=== PATIENT | female | born 1955 | race Caucasian/White ===

== ENCOUNTER 2017-08-11 15:16 | Inpatient (IN) | payer MEDICAID ==
[~2017-08-11] VITALS: Ht 162.6 cm; Wt 72.7 kg
[2017-08-11] MEDS ORDERED: SODIUM CHLORIDE 0.9% 1,000 ML IV ONE (15:33)
[2017-08-11] MEDS ORDERED: ACETAMINOPHEN 500 MG TABLET ONE (15:34)
[2017-08-11] MEDS ORDERED: ALBUTEROL/IPRATROPIUM 2.5MG/0.5MG, 3 ML ONE (15:48)
[2017-08-11] MEDS ORDERED: ONDANSETRON 2MG/ML, 2ML IVP ONE (16:00)
[2017-08-11] MEDS ORDERED: SODIUM CHLORIDE FLUSH 10ML SYR IVF ONE (16:00)
[2017-08-11] MEDS ORDERED: SODIUM CHLORIDE 0.9% 1,000ML IVBOLUS ONE (16:00)
[2017-08-11] MEDS ORDERED: ALBUTEROL/IPRATROPIUM 2.5MG/0.5MG, 3 ML NPPB ONE (16:00)
[2017-08-11] MEDS ORDERED: ACETAMINOPHEN 500 MG TABLET PO ONE (16:00)
[2017-08-11 16:06] LABS: BASOPHILS # (AUTO) 0.01 x10^3/uL (0-0.1); BASOPHILS % (AUTO) 0 % (0-1); EOSINOPHILS # (AUTO) 0.01 x10^3/uL (0-0.4); EOSINOPHILS % (AUTO) 0 % (1-7); LYMPHOCYTES # (AUTO) 0.71 x10^3/uL (1-3.4); LYMPHOCYTES % (AUTO) 8 % (22-44); MD NO; MEAN CORPUSCULAR HEMOGLOBIN 30.8 pg (27.0-34.8); MEAN CORPUSCULAR HGB CONC 33.6 g/dL (32.4-35.8); MEAN CORPUSCULAR VOLUME 91.7 fL (80-100); MEAN PLATELET VOLUME 7.9 fL (7.4-10.4); MONOCYTES # (AUTO) 0.69 x10^3/uL (0.2-0.8); MONOCYTES % (AUTO) 8 % (2-9); NEUTROPHILS # (AUTO) 7.35 x10^3/uL (1.8-6.8); NEUTROPHILS % (AUTO) 84 % (42-75); PLATELET COUNT 182 x10^3/uL (130-400); RED BLOOD COUNT 4.38 x10^6/uL (3.82-5.3); RED CELL DISTRIBUTION WIDTH 13.5 % (9.6-15.2)
[2017-08-11] MEDS ORDERED: CEFTRIAXONE PMX 1GM/50ML 50 ML ONE (16:21)
[2017-08-11 16:23] LABS: ALANINE AMINOTRANSFERASE 19 U/L (12-78); ANION GAP 4 mmol/L (5-15); CALCIUM 7.7 mg/dL (8.5-10.1); CHLORIDE 110 mmol/L (98-107); CREATININE 0.71 mg/dL (0.55-1.02)
[2017-08-11 16:25] LABS: ALKALINE PHOSPHATASE 63 U/L (45-117); TOTAL PROTEIN 6.8 g/dL (6.4-8.2)
[2017-08-11] MEDS ORDERED: BENZONATATE 100 MG CAPSULE ONE (16:29)
[2017-08-11] MEDS ORDERED: BENZONATATE 100 MG CAPSULE PO ONE (16:30)
[2017-08-11] MEDS ORDERED: CEFTRIAXONE PMX 1GM/50ML 50 ML IV ONE (16:30)
[2017-08-11 16:37] LABS: MICROSCOPIC NOT IND
[2017-08-11 16:40] LABS: CULTURE INDICATED? NO
[2017-08-11] MEDS ORDERED: NIAC500T26 PO (17:41)
[2017-08-11] MEDS ORDERED: POLYETHYLENE GLYCOL 17 GM PACKET PO PRN (18:30)
[2017-08-11] MEDS ORDERED: BISACODYL 10 MG SUPP PR PRN (18:30)
[2017-08-11] MEDS ORDERED: ONDANSETRON 2MG/ML, 2ML IVPush PRN (18:30)
[2017-08-11] MEDS: HEPARIN 5,000 UNITS/ML, 1ML SQ SCH (19:37)
[2017-08-11] MEDS: SODIUM CHLORIDE 0.9% 1,000 ML IV SCH (19:38)
[2017-08-11 19:49] VITALS: BP 118/78
[2017-08-11] MEDS: ACETAMINOPHEN 325 MG TABLET PO PRN (20:11)
[2017-08-11] MEDS: AZITHROMYCIN 500 MG in SODIUM CHLORIDE 0.9% 250 ML IV SCH (20:11)
[2017-08-11 22:03] LABS: RAPID INFLUENZA A Negative (Negative); RAPID INFLUENZA B Negative (Negative)
[2017-08-12 01:03] VITALS: BP 133/83
[2017-08-12] MEDS: SODIUM CHLORIDE 0.9% 1,000 ML IV SCH ×3 (03:30→22:03)
[2017-08-12] MEDS: HEPARIN 5,000 UNITS/ML, 1ML SQ SCH ×3 (03:30→22:03)
[2017-08-12 05:51] LABS: BASOPHILS # (AUTO) 0.02 x10^3/uL (0-0.1); BASOPHILS % (AUTO) 0 % (0-1); EOSINOPHILS # (AUTO) 0.02 x10^3/uL (0-0.4); EOSINOPHILS % (AUTO) 0 % (1-7); LYMPHOCYTES # (AUTO) 1.28 x10^3/uL (1-3.4); LYMPHOCYTES % (AUTO) 15 % (22-44); MD NO; MEAN CORPUSCULAR HEMOGLOBIN 31.1 pg (27.0-34.8); MEAN CORPUSCULAR HGB CONC 33.4 g/dL (32.4-35.8); MEAN PLATELET VOLUME 8.4 fL (7.4-10.4); MONOCYTES # (AUTO) 0.61 x10^3/uL (0.2-0.8); MONOCYTES % (AUTO) 7 % (2-9); NEUTROPHILS # (AUTO) 6.82 x10^3/uL (1.8-6.8); NEUTROPHILS % (AUTO) 78 % (42-75); PLATELET COUNT 166 x10^3/uL (130-400); RED BLOOD COUNT 4.07 x10^6/uL (3.82-5.3); RED CELL DISTRIBUTION WIDTH 13.7 % (9.6-15.2)
[2017-08-12 05:59] LABS: CHLORIDE 107 mmol/L (98-107)
[2017-08-12 06:02] LABS: ALANINE AMINOTRANSFERASE 29 U/L (12-78); ALBUMIN 2.5 g/dL (3.4-5.0); ALKALINE PHOSPHATASE 59 U/L (45-117); ANION GAP 9 mmol/L (5-15); CALCIUM 7.5 mg/dL (8.5-10.1); CREATININE 0.61 mg/dL (0.55-1.02); TOTAL PROTEIN 6.1 g/dL (6.4-8.2)
[2017-08-12 07:24] VITALS: BP 127/78
[2017-08-12] MEDS: SENNA/DOCUSATE TABLET PO SCH (08:57)
[2017-08-12] MEDS: KETOROLAC 30 MG/1 ML IVPush PRN ×2 (08:58→19:40)
[2017-08-12] MEDS: GUAIFENESIN/DM 200-20MG, 10ML UDC PO PRN ×2 (09:18→16:51)
[2017-08-12] MEDS: ALBUTEROL SULFATE 2.5 MG/3 ML NPPB PRN (12:25)
[2017-08-12 13:13] VITALS: BP 100/65
[2017-08-12] MEDS: POTASSIUM CHLORIDE 20 MEQ TAB.ER.PRT PO SCH (16:39)
[2017-08-12] MEDS: CEFTRIAXONE PMX 1GM/50ML 50 ML IV SCH (16:39)
[2017-08-12] MEDS: AZITHROMYCIN 500 MG in SODIUM CHLORIDE 0.9% 250 ML IV SCH (17:33)
[2017-08-12 20:28] VITALS: BP 117/83
[2017-08-13 01:22] VITALS: BP 100/68
[2017-08-13] MEDS: GUAIFENESIN/DM 200-20MG, 10ML UDC PO PRN ×2 (01:22→18:42)
[2017-08-13] MEDS: ALBUTEROL SULFATE 2.5 MG/3 ML NPPB PRN (04:56)
[2017-08-13] MEDS: HEPARIN 5,000 UNITS/ML, 1ML SQ SCH ×3 (05:09→20:55)
[2017-08-13] MEDS: KETOROLAC 30 MG/1 ML IVPush PRN ×3 (05:09→20:52)
[2017-08-13] MEDS: SODIUM CHLORIDE 0.9% 1,000 ML IV SCH ×3 (05:09→22:17)
[2017-08-13 07:45] VITALS: BP 106/70
[2017-08-13] MEDS: SENNA/DOCUSATE TABLET PO SCH (08:38)
[2017-08-13] MEDS: POTASSIUM CHLORIDE 20 MEQ TAB.ER.PRT PO SCH (08:38)
[2017-08-13] MEDS: BENZONATATE 100 MG CAPSULE PO SCH ×3 (09:15→20:52)
[2017-08-13] MEDS: HYDROcodone/CHLORPHENIR ORAL SUSP PO PRN (13:12)
[2017-08-13 14:31] VITALS: BP 101/68
[2017-08-13] MEDS: CEFTRIAXONE PMX 1GM/50ML 50 ML IV SCH (16:51)
[2017-08-13] MEDS: AZITHROMYCIN 500 MG in SODIUM CHLORIDE 0.9% 250 ML IV SCH (18:38)
[2017-08-13 19:38] VITALS: BP 111/74
[2017-08-14 00:44] VITALS: BP 120/80
[2017-08-14] MEDS: HYDROcodone/CHLORPHENIR ORAL SUSP PO PRN ×2 (01:29→14:11)
[2017-08-14] MEDS: HEPARIN 5,000 UNITS/ML, 1ML SQ SCH ×3 (05:46→21:58)
[2017-08-14] MEDS: KETOROLAC 30 MG/1 ML IVPush PRN ×3 (05:46→21:58)
[2017-08-14] MEDS: SODIUM CHLORIDE 0.9% 1,000 ML IV SCH (06:36)
[2017-08-14 07:41] VITALS: BP 117/77
[2017-08-14] MEDS: SENNA/DOCUSATE TABLET PO SCH (09:00)
[2017-08-14] MEDS: GUAIFENESIN/DM 200-20MG, 10ML UDC PO PRN ×3 (09:14→23:12)
[2017-08-14] MEDS: LEVOFLOXACIN/PMX 750MG/150ML 150 ML IV SCH (09:14)
[2017-08-14] MEDS: BENZONATATE 100 MG CAPSULE PO SCH ×3 (09:14→21:57)
[2017-08-14] MEDS: ACETAMINOPHEN 325 MG TABLET PO PRN (13:59)
[2017-08-14 14:47] VITALS: BP 159/92
[2017-08-14 20:07] VITALS: BP 155/90
[2017-08-15 01:15] VITALS: BP 118/76
[2017-08-15] MEDS: HYDROcodone/CHLORPHENIR ORAL SUSP PO PRN (04:30)
[2017-08-15 05:36] LABS: ALBUMIN 2.4 g/dL (3.4-5.0); ANION GAP 5 mmol/L (5-15); CHLORIDE 112 mmol/L (98-107); CREATININE 0.67 mg/dL (0.55-1.02)
[2017-08-15] MEDS: HEPARIN 5,000 UNITS/ML, 1ML SQ SCH ×2 (06:25→14:00)
[2017-08-15 07:52] VITALS: BP 122/80
[2017-08-15] MEDS: LEVOFLOXACIN/PMX 750MG/150ML 150 ML IV SCH (08:29)
[2017-08-15] MEDS: BENZONATATE 100 MG CAPSULE PO SCH (08:29)
[2017-08-15] MEDS: SENNA/DOCUSATE TABLET PO SCH (08:30)
[2017-08-15] MEDS ORDERED: LEVO750T26 PO (12:15)
[2017-08-15] MEDS ORDERED: BENZ-17 PO (12:15)
[2017-08-15] MEDS ORDERED: PRED20TA PO (12:15)
== END 2017-08-15 15:13 | disposition home or self-care (01) | DRG 871 ==
LOC: ED 16:09 → EDIP 17:21 → 4EST 18:56
PROVIDERS: ADMIT Internal Medicine; ATTEND Hospitalist
DX: A41.9 Sepsis, unspecified organism (principal); E43 Unspecified severe protein-calorie malnutrition; J96.01 Acute respiratory failure with hypoxia; E87.6 Hypokalemia; Z66 Do not resuscitate; J15.9 Unspecified bacterial pneumonia; Z68.27 Body mass index [BMI] 27.0-27.9, adult; Z80.1 Family history of malignant neoplasm of trachea, bronchus and lung; Z80.3 Family history of malignant neoplasm of breast; Z82.49 Family history of ischemic heart disease and other diseases of the circulatory system
CPT/HCPCS: 36415; 71045; 80048; 80053; 81003; 82040; 83605; 83735; 84145; 85025; 87040; 87081; 87400; 93005; 94640; 96361; 96365; 96366; J0456; J0696; J1644; J1885; J1956; J7613; J7620; J7030; J7050; J7512

== ENCOUNTER 2018-05-02 03:13 | Inpatient (IN) | payer MEDICAID ==
[~2018-05-02] VITALS: Ht 162.6 cm; Wt 73.7 kg
[~2018-05-02 03:13] MED LIST: BENZ-17 PO; LEVO750T26 PO; NIAC500T26 PO; PRED20TA PO
[2018-05-02] MEDS ORDERED: ALBUTEROL SULFATE 2.5 MG/3 ML ONE (03:24)
[2018-05-02] MEDS ORDERED: PLEASE ENTER HEIGHT AND WEIGHT MC SCH (03:30)
[2018-05-02] MEDS ORDERED: ALBUTEROL SULFATE 2.5 MG/3 ML NPPB ONE (03:30)
[2018-05-02 03:31] LABS: BASOPHILS % (AUTO) 0 % (0-1); EOSINOPHILS % (AUTO) 0 % (1-7); LYMPHOCYTES # (AUTO) 0.51 x10^3/uL (1-3.4); LYMPHOCYTES % (AUTO) 10 % (22-44); MD NO; MEAN CORPUSCULAR HEMOGLOBIN 31.3 pg (27.0-34.8); MEAN CORPUSCULAR HGB CONC 33.7 g/dL (32.4-35.8); MEAN CORPUSCULAR VOLUME 92.9 fL (80-100); MEAN PLATELET VOLUME 8.1 fL (7.4-10.4); MONOCYTES % (AUTO) 4 % (2-9); NEUTROPHILS # (AUTO) 4.21 x10^3/uL (1.8-6.8); NEUTROPHILS % (AUTO) 86 % (42-75); PLATELET COUNT 155 x10^3/uL (130-400); RED BLOOD COUNT 4.08 x10^6/uL (3.82-5.3); RED CELL DISTRIBUTION WIDTH 13.3 % (9.6-15.2)
[2018-05-02 03:44] LABS: ALANINE AMINOTRANSFERASE 20 U/L (12-78); ANION GAP 10 mmol/L (5-15); CALCIUM 7.7 mg/dL (8.5-10.1); CHLORIDE 106 mmol/L (98-107); CREATININE 1.04 mg/dL (0.55-1.02)
[2018-05-02] MEDS ORDERED: BENZONATATE 100 MG CAPSULE ONE ×2 (03:46→03:47)
[2018-05-02 03:48] LABS: ALKALINE PHOSPHATASE 56 U/L (45-117); BILIRUBIN,TOTAL 0.6 mg/dL (0.2-1.0); TOTAL PROTEIN 6.1 g/dL (6.4-8.2); TROPONIN I < 0.015 ng/mL (0.000-0.045)
[2018-05-02] MEDS ORDERED: CEFTRIAXONE PMX 1GM/50ML 50 ML ONE (03:59)
[2018-05-02] MEDS ORDERED: CEFTRIAXONE 1,000 MG in SODIUM CHLORIDE 0.9% 50 ML IVPB ONE (04:00)
[2018-05-02] MEDS ORDERED: SODIUM CHLORIDE 0.9% 1,000ML IVBOLUS ONE ×2 (04:00→14:00)
[2018-05-02] MEDS ORDERED: BENZONATATE 100 MG CAPSULE PO ONE (04:00)
[2018-05-02] MEDS ORDERED: AZITHROMYCIN 500 MG TABLET PO ONE (04:00)
[2018-05-02] MEDS ORDERED: AZITHROMYCIN 250 MG TABLET ONE (04:03)
[2018-05-02 04:34] VITALS: BP 97/71
[2018-05-02 04:55] VITALS: BP 97/71
[2018-05-02] MEDS ORDERED: SODIUM CHLORIDE 0.9% 1,000 ML IV SCH (04:58)
[2018-05-02] MEDS ORDERED: ONDANSETRON 2MG/ML, 2ML IVPush PRN (05:00)
[2018-05-02] MEDS ORDERED: ONDANSETRON ODT 4 MG PO PRN (05:00)
[2018-05-02] MEDS ORDERED: POLYETHYLENE GLYCOL 17 GM PACKET PO PRN (05:00)
[2018-05-02] MEDS ORDERED: hydrALAzine 20 MG/ML, 1ML IVPush PRN (05:00)
[2018-05-02] MEDS: HYDROcodone/CHLORPHENIR ORAL SUSP PO PRN ×2 (05:53→23:00)
[2018-05-02] MEDS: ENOXAPARIN 40 MG/0.4 ML SQ SCH (05:53)
[2018-05-02] MEDS: KETOROLAC 30 MG/1 ML IVPush PRN (05:53)
[2018-05-02 07:58] VITALS: BP 93/60
[2018-05-02] MEDS: BENZONATATE 100 MG CAPSULE PO SCH ×3 (08:41→20:50)
[2018-05-02 13:24] VITALS: BP 88/60
[2018-05-02 16:46] VITALS: BP 100/68
[2018-05-02] MEDS: SODIUM CHLORIDE 0.9% 1,000 ML IV SCH (17:48)
[2018-05-02 20:31] VITALS: BP 93/67
[2018-05-03 00:12] VITALS: BP 94/63
[2018-05-03] MEDS: SODIUM CHLORIDE 0.9% 1,000 ML IV SCH ×3 (00:48→23:38)
[2018-05-03] MEDS: CEFTRIAXONE PMX 1GM/50ML 50 ML IV SCH (04:10)
[2018-05-03] MEDS: ACETAMINOPHEN 325 MG TABLET PO PRN (04:19)
[2018-05-03] MEDS: GUAIFENESIN/DM 200-20MG, 10ML UDC PO PRN ×2 (04:19→15:15)
[2018-05-03] MEDS: AZITHROMYCIN 500 MG in SODIUM CHLORIDE 0.9% 250 ML IV SCH (04:49)
[2018-05-03 04:54] LABS: MEAN CORPUSCULAR HEMOGLOBIN 31.3 pg (27.0-34.8); MEAN CORPUSCULAR HGB CONC 32.9 g/dL (32.4-35.8); MEAN CORPUSCULAR VOLUME 95.1 fL (80-100); MEAN PLATELET VOLUME 8.7 fL (7.4-10.4); PLATELET COUNT 153 x10^3/uL (130-400); RED BLOOD COUNT 3.97 x10^6/uL (3.82-5.3); RED CELL DISTRIBUTION WIDTH 13.8 % (9.6-15.2)
[2018-05-03 05:03] LABS: ANION GAP 6 mmol/L (5-15); CALCIUM 7.1 mg/dL (8.5-10.1); CHLORIDE 110 mmol/L (98-107); CREATININE 0.93 mg/dL (0.55-1.02)
[2018-05-03 05:22] LABS: MD YES
[2018-05-03 05:24] LABS: BAND#(MANUAL) 1.65 x10^3/uL; BANDS%(MANUAL) 13 % (0-7); LYMPH#(MANUAL) 1.27 x10^3/uL (1-3.4); LYMPHS% (MANUAL) 10 % (22-44); MONOS#(MANUAL) 0.38 x10^3/uL (0.3-2.7); MONOS% (MANUAL) 3 % (2-9); SEGS% (MANUAL) 74 % (42-75)
[2018-05-03 05:25] LABS: <PLATELET ESTIMATE> ADEQUATE; <PLT MORPHOLOGY> NORMAL PLT MORPH; <RBC MORPHOLOGY> NORMAL
[2018-05-03] MEDS: ENOXAPARIN 40 MG/0.4 ML SQ SCH (06:05)
[2018-05-03 07:37] VITALS: BP 90/58
[2018-05-03] MEDS: BENZONATATE 100 MG CAPSULE PO SCH ×3 (07:43→19:45)
[2018-05-03] MEDS ORDERED: SODIUM PHOSPHATE 10 MMOL in SODIUM CHLORIDE 0.9% 500 ML IV ONE (09:00)
[2018-05-03] MEDS: KETOROLAC 30 MG/1 ML IVPush PRN (10:48)
[2018-05-03 12:58] VITALS: BP 106/72
[2018-05-03 19:00] VITALS: BP 141/79
[2018-05-03] MEDS ORDERED: ALBUTEROL/IPRATROPIUM 2.5MG/0.5MG, 3 ML ONE (19:01)
[2018-05-03] MEDS: HYDROcodone/CHLORPHENIR ORAL SUSP PO PRN (19:04)
[2018-05-03] MEDS ORDERED: LORazepam 2 MG/ML, 1ML IVPush ONE (19:30)
[2018-05-03] MEDS: IBUPROFEN 200 MG TABLET PO PRN (19:50)
[2018-05-03 20:25] VITALS: BP 134/88
[2018-05-04 02:23] VITALS: BP 103/70
[2018-05-04] MEDS: GUAIFENESIN/DM 200-20MG, 10ML UDC PO PRN (04:24)
[2018-05-04] MEDS: CEFTRIAXONE PMX 1GM/50ML 50 ML IV SCH (04:24)
[2018-05-04] MEDS: KETOROLAC 30 MG/1 ML IVPush PRN (04:43)
[2018-05-04 05:27] LABS: MEAN CORPUSCULAR HEMOGLOBIN 30.9 pg (27.0-34.8); MEAN CORPUSCULAR HGB CONC 32.7 g/dL (32.4-35.8); MEAN CORPUSCULAR VOLUME 94.2 fL (80-100); MEAN PLATELET VOLUME 9.1 fL (7.4-10.4); PLATELET COUNT 137 x10^3/uL (130-400); RED BLOOD COUNT 3.79 x10^6/uL (3.82-5.3); RED CELL DISTRIBUTION WIDTH 13.9 % (9.6-15.2)
[2018-05-04] MEDS: AZITHROMYCIN 500 MG in SODIUM CHLORIDE 0.9% 250 ML IV SCH (05:28)
[2018-05-04] MEDS: ENOXAPARIN 40 MG/0.4 ML SQ SCH (05:28)
[2018-05-04] MEDS: SODIUM CHLORIDE 0.9% 1,000 ML IV SCH ×2 (05:29→20:53)
[2018-05-04 05:40] LABS: ALBUMIN 2.1 g/dL (3.4-5.0); ANION GAP 7 mmol/L (5-15); CALCIUM 7.3 mg/dL (8.5-10.1); CHLORIDE 113 mmol/L (98-107); CREATININE 0.66 mg/dL (0.55-1.02)
[2018-05-04 05:50] LABS: MD YES
[2018-05-04 05:52] LABS: BAND#(MANUAL) 0.55 x10^3/uL; BANDS%(MANUAL) 5 % (0-7); LYMPH#(MANUAL) 0.66 x10^3/uL (1-3.4); LYMPHS% (MANUAL) 6 % (22-44); MONOS#(MANUAL) 0.11 x10^3/uL (0.3-2.7); MONOS% (MANUAL) 1 % (2-9); SEG#(MANUAL) 9.68 x10^3/uL (1.8-6.8); SEGS% (MANUAL) 88 % (42-75)
[2018-05-04 05:53] LABS: <PLATELET ESTIMATE> ADEQUATE; <PLT MORPHOLOGY> NORMAL PLT MORPH; <RBC MORPHOLOGY> NORMAL
[2018-05-04 07:48] VITALS: BP 98/65
[2018-05-04] MEDS: BENZONATATE 100 MG CAPSULE PO SCH ×3 (09:00→20:53)
[2018-05-04] MEDS: MORPHINE SULFATE 4 MG/ML, 1ML IVPush PRN ×3 (10:02→16:27)
[2018-05-04 15:22] VITALS: BP 118/71
[2018-05-04] MEDS: LORazepam 2 MG/ML, 1ML IVPush PRN ×2 (18:28→23:04)
[2018-05-04 18:58] VITALS: BP 109/63
[2018-05-04] MEDS ORDERED: LIDOCAINE 1%, 2ML ENDO ONE (21:00)
[2018-05-04] MEDS ORDERED: FUROSEMIDE 20 MG/2 ML ONE (22:14)
[2018-05-04] MEDS ORDERED: FUROSEMIDE 20 MG/2 ML IV ONE (22:30)
[2018-05-05 00:42] VITALS: BP 121/78
[2018-05-05] MEDS: LORazepam 2 MG/ML, 1ML IVPush PRN ×2 (01:50→04:03)
[2018-05-05] MEDS: CEFTRIAXONE PMX 1GM/50ML 50 ML IV SCH (03:56)
[2018-05-05] MEDS: AZITHROMYCIN 500 MG in SODIUM CHLORIDE 0.9% 250 ML IV SCH (05:24)
[2018-05-05] MEDS: ENOXAPARIN 40 MG/0.4 ML SQ SCH (05:24)
[2018-05-05] MEDS ORDERED: FUROSEMIDE 40 MG/4 ML IV ONE (05:30)
[2018-05-05 05:54] LABS: ANION GAP 9 mmol/L (5-15); CALCIUM 7.6 mg/dL (8.5-10.1); CHLORIDE 108 mmol/L (98-107); CREATININE 0.71 mg/dL (0.55-1.02)
[2018-05-05 06:15] LABS: BASOPHILS # (AUTO) 0.02 x10^3/uL (0-0.1); BASOPHILS % (AUTO) 0 % (0-1); EOSINOPHILS # (AUTO) 0.01 x10^3/uL (0-0.4); EOSINOPHILS % (AUTO) 0 % (1-7); LYMPHOCYTES # (AUTO) 0.84 x10^3/uL (1-3.4); LYMPHOCYTES % (AUTO) 10 % (22-44); MD NO; MEAN CORPUSCULAR HEMOGLOBIN 31.5 pg (27.0-34.8); MEAN CORPUSCULAR HGB CONC 33.5 g/dL (32.4-35.8); MEAN CORPUSCULAR VOLUME 94.2 fL (80-100); MEAN PLATELET VOLUME 9.3 fL (7.4-10.4); MONOCYTES # (AUTO) 0.47 x10^3/uL (0.2-0.8); MONOCYTES % (AUTO) 6 % (2-9); NEUTROPHILS # (AUTO) 7.13 x10^3/uL (1.8-6.8); NEUTROPHILS % (AUTO) 84 % (42-75); PLATELET COUNT 147 x10^3/uL (130-400); RED BLOOD COUNT 3.84 x10^6/uL (3.82-5.3); RED CELL DISTRIBUTION WIDTH 13.7 % (9.6-15.2)
[2018-05-05] MEDS ORDERED: HALOPERIDOL 5 MG/ML ONE (06:23)
[2018-05-05] MEDS ORDERED: HALOPERIDOL 5 MG/ML IM PRN (06:30)
[2018-05-05 07:39] VITALS: BP 114/77
[2018-05-05] MEDS: CETIRIZINE 10 MG TABLET PO SCH (09:00)
[2018-05-05] MEDS ORDERED: HALOPERIDOL 1 MG TABLET PO SCH (09:00)
[2018-05-05] MEDS: BENZONATATE 100 MG CAPSULE PO SCH ×3 (09:00→21:00)
[2018-05-05] MEDS: HALOPERIDOL 5 MG/ML IM PRN ×2 (10:49→20:45)
[2018-05-05 11:46] LABS: MICROSCOPIC NOT IND
[2018-05-05 11:52] LABS: CULTURE INDICATED? NO
[2018-05-05 14:08] VITALS: BP 124/78
[2018-05-05] MEDS ORDERED: SODIUM CHLORIDE 0.9% 1,000 ML IV SCH (17:00)
[2018-05-05] MEDS: PIPERACILLIN/TAZO/PMX 4.5GM 100 ML IV SCH ×2 (17:08→23:09)
[2018-05-05 20:00] VITALS: BP 159/95
[2018-05-05] MEDS: QUETIAPINE 25MG TABLET PO SCH (21:00)
[2018-05-06 01:05] VITALS: BP 151/92
[2018-05-06] MEDS: PIPERACILLIN/TAZO/PMX 4.5GM 100 ML IV SCH ×4 (05:07→23:09)
[2018-05-06] MEDS: AZITHROMYCIN 500 MG in SODIUM CHLORIDE 0.9% 250 ML IV SCH (06:02)
[2018-05-06] MEDS: ENOXAPARIN 40 MG/0.4 ML SQ SCH (06:02)
[2018-05-06 07:24] VITALS: BP 143/88
[2018-05-06] MEDS: CETIRIZINE 10 MG TABLET PO SCH (10:16)
[2018-05-06] MEDS: BENZONATATE 100 MG CAPSULE PO SCH ×3 (10:17→20:32)
[2018-05-06] MEDS: HALOPERIDOL 5 MG/ML IM PRN (11:09)
[2018-05-06 11:39] VITALS: BP_SYST 162; BP_SYST 169; BP_DIAS 103; BP_DIAS 96
[2018-05-06 12:25] VITALS: BP 152/99
[2018-05-06] MEDS ORDERED: MORPHINE SULFATE 4 MG/ML, 1ML IVPush PRN (14:00)
[2018-05-06] MEDS: HYDROcodone/CHLORPHENIR ORAL SUSP PO PRN (16:48)
[2018-05-06 20:26] VITALS: BP 145/87
[2018-05-06] MEDS: IBUPROFEN 200 MG TABLET PO PRN (20:32)
[2018-05-06] MEDS: QUETIAPINE 25MG TABLET PO SCH (20:32)
[2018-05-07] MEDS: PIPERACILLIN/TAZO/PMX 4.5GM 100 ML IV SCH ×4 (05:01→22:50)
[2018-05-07] MEDS: ENOXAPARIN 40 MG/0.4 ML SQ SCH (06:11)
[2018-05-07] MEDS: AZITHROMYCIN 500 MG in SODIUM CHLORIDE 0.9% 250 ML IV SCH (06:11)
[2018-05-07 06:40] LABS: BASOPHILS % (AUTO) 0 % (0-1); EOSINOPHILS # (AUTO) 0.06 x10^3/uL (0-0.4); EOSINOPHILS % (AUTO) 1 % (1-7); LYMPHOCYTES # (AUTO) 1.35 x10^3/uL (1-3.4); LYMPHOCYTES % (AUTO) 24 % (22-44); MD NO; MEAN CORPUSCULAR HEMOGLOBIN 30.9 pg (27.0-34.8); MEAN CORPUSCULAR HGB CONC 33.6 g/dL (32.4-35.8); MEAN CORPUSCULAR VOLUME 92.1 fL (80-100); MEAN PLATELET VOLUME 8.2 fL (7.4-10.4); MONOCYTES # (AUTO) 0.93 x10^3/uL (0.2-0.8); MONOCYTES % (AUTO) 17 % (2-9); NEUTROPHILS # (AUTO) 3.18 x10^3/uL (1.8-6.8); NEUTROPHILS % (AUTO) 58 % (42-75); PLATELET COUNT 222 x10^3/uL (130-400); RED BLOOD COUNT 4.12 x10^6/uL (3.82-5.3); RED CELL DISTRIBUTION WIDTH 13.2 % (9.6-15.2)
[2018-05-07 06:48] LABS: ANION GAP 9 mmol/L (5-15); CALCIUM 7.6 mg/dL (8.5-10.1); CHLORIDE 105 mmol/L (98-107); CREATININE 0.58 mg/dL (0.55-1.02)
[2018-05-07 07:02] VITALS: BP 124/75
[2018-05-07] MEDS: CETIRIZINE 10 MG TABLET PO SCH (09:51)
[2018-05-07] MEDS: BENZONATATE 100 MG CAPSULE PO SCH ×3 (09:52→20:09)
[2018-05-07] MEDS: HYDROcodone/CHLORPHENIR ORAL SUSP PO PRN (11:10)
[2018-05-07 12:26] VITALS: BP 137/83
[2018-05-07] MEDS: POTASSIUM CHLORIDE 20 MEQ TAB.ER.PRT PO SCH (17:12)
[2018-05-07] MEDS: GUAIFENESIN/DM 200-20MG, 10ML UDC PO PRN (18:10)
[2018-05-07 20:00] VITALS: BP 128/84
[2018-05-07] MEDS: QUETIAPINE 25MG TABLET PO SCH (20:10)
[2018-05-08] MEDS: GUAIFENESIN/DM 200-20MG, 10ML UDC PO PRN ×3 (05:12→20:06)
[2018-05-08] MEDS: PIPERACILLIN/TAZO/PMX 4.5GM 100 ML IV SCH ×4 (05:12→23:00)
[2018-05-08] MEDS: IBUPROFEN 200 MG TABLET PO PRN (05:12)
[2018-05-08] MEDS: ENOXAPARIN 40 MG/0.4 ML SQ SCH (05:15)
[2018-05-08] MEDS: AZITHROMYCIN 500 MG in SODIUM CHLORIDE 0.9% 250 ML IV SCH (06:07)
[2018-05-08 07:00] VITALS: BP 130/77
[2018-05-08] MEDS: BENZONATATE 100 MG CAPSULE PO SCH ×3 (07:59→20:05)
[2018-05-08] MEDS: CETIRIZINE 10 MG TABLET PO SCH (07:59)
[2018-05-08] MEDS: ACETAMINOPHEN 325 MG TABLET PO PRN (08:00)
[2018-05-08] MEDS: POTASSIUM CHLORIDE 20 MEQ TAB.ER.PRT PO SCH (08:02)
[2018-05-08 12:13] VITALS: BP 142/88
[2018-05-08 16:24] LABS: ANION GAP 8 mmol/L (5-15); CALCIUM 7.4 mg/dL (8.5-10.1); CHLORIDE 106 mmol/L (98-107)
[2018-05-08 16:25] LABS: CREATININE 0.79 mg/dL (0.55-1.02)
[2018-05-08] MEDS ORDERED: POTASSIUM PHOS 4.4 MEQ/ML IV ONE (17:30)
[2018-05-08] MEDS ORDERED: POTASSIUM PHOSPHATE 22 MEQ in SODIUM CHLORIDE 0.9% 500 ML IV ONE (17:30)
[2018-05-08 18:38] LABS: FREE T4 (FREE THYROXINE) 1.39 ng/dL (0.76-1.46); THYROID STIMULATING HORMONE 1.02 mIU/L (0.358-3.740)
[2018-05-08] MEDS: QUETIAPINE 25MG TABLET PO SCH (20:05)
[2018-05-08 20:15] VITALS: BP 161/106
[2018-05-08 22:03] VITALS: BP 128/91
[2018-05-09] MEDS: HYDROcodone/CHLORPHENIR ORAL SUSP PO PRN (02:34)
[2018-05-09] MEDS: ENOXAPARIN 40 MG/0.4 ML SQ SCH (05:06)
[2018-05-09] MEDS: PIPERACILLIN/TAZO/PMX 4.5GM 100 ML IV SCH ×2 (05:06→11:19)
[2018-05-09 05:10] LABS: CHLORIDE 107 mmol/L (98-107)
[2018-05-09 05:16] LABS: ANION GAP 10 mmol/L (5-15); CALCIUM 8.1 mg/dL (8.5-10.1); CREATININE 0.67 mg/dL (0.55-1.02)
[2018-05-09 07:03] VITALS: BP 127/87
[2018-05-09] MEDS: CETIRIZINE 10 MG TABLET PO SCH (09:12)
[2018-05-09] MEDS: BENZONATATE 100 MG CAPSULE PO SCH (09:14)
[2018-05-09] MEDS ORDERED: SERTRALINE 50MG TABLET PO SCH (10:30)
[2018-05-09] MEDS ORDERED: AMOX1TAB64 PO (13:51)
[2018-05-09] MEDS ORDERED: SERT50TA5 PO (13:51)
[2018-05-09] MEDS ORDERED: MELATONIN 3 MG TABLET PO SCH (21:00)
== END 2018-05-09 15:25 | disposition home or self-care (01) | DRG 193 ==
LOC: ED 03:55 → EDIP 03:59 → 3NW 04:31 → 4EST 05-05 10:58 → DCLOUNGE 05-09 15:14
PROVIDERS: ADMIT Hospitalist; ATTEND Family Medicine
PROC: 0T9B70Z Drainage of Bladder with Drainage Device, Via Natural or Artificial Opening (ICD-10-PCS; principal; 2018-05-05)
DX: J15.9 Unspecified bacterial pneumonia (principal); J96.01 Acute respiratory failure with hypoxia; G92 Toxic encephalopathy; E83.51 Hypocalcemia; F41.9 Anxiety disorder, unspecified; R53.81 Other malaise; F32.9 Major depressive disorder, single episode, unspecified; Z78.1 Physical restraint status; Z81.1 Family history of alcohol abuse and dependence; Z82.49 Family history of ischemic heart disease and other diseases of the circulatory system; Z82.5 Family history of asthma and other chronic lower respiratory diseases; Z80.1 Family history of malignant neoplasm of trachea, bronchus and lung; Z90.89 Acquired absence of other organs; Z90.721 Acquired absence of ovaries, unilateral; Z98.51 Tubal ligation status; Z23 Encounter for immunization
CPT/HCPCS: 36415; 36600; 99285; J7613; 70450; 71045; 71250; 80048; 80053; 81003; 82040; 82803; 83735; 84100; 84439; 84443; 84481; 84484; 85025; 87040; 90656; 93005; 94640; G0378; J0456; J0696; J1650; J1885; J1940; J2543; J3490; Q0162; J0360; J1630; J2060; J7030; J7040; J7050